=== PATIENT | female | born 1965 | race Caucasian/White ===

== ENCOUNTER → 2016-12-22 | Outpatient (CLI) | payer OTHER | LOC: RAD 12:53 | DX: D25.0 Submucous leiomyoma of uterus (principal); N85.9 Noninflammatory disorder of uterus, unspecified ==

== ENCOUNTER → 2019-05-07 | Outpatient (CLI) | payer OTHER | LOC: MAMMO 12:47 | DX: Z12.31 Encounter for screening mammogram for malignant neoplasm of breast (principal) ==

== ENCOUNTER → 2020-06-29 | Outpatient (CLI) | payer OTHER | LOC: MAMMO 10:48 | DX: Z12.31 Encounter for screening mammogram for malignant neoplasm of breast (principal); Z98.82 Breast implant status ==

== ENCOUNTER → 2022-08-16 | Outpatient (CLI) | payer OTHER | LOC: PT 08:22 | DX: S73.191A Other sprain of right hip, initial encounter (principal); M24.151 Other articular cartilage disorders, right hip; M25.851 Other specified joint disorders, right hip ==

== ENCOUNTER 2022-09-06 08:51 | Outpatient (RCR) | payer OTHER | END 2022-09-18 | disposition still patient (30) | LOC: PT | DX: S73.191D Other sprain of right hip, subsequent encounter (principal); M25.851 Other specified joint disorders, right hip; M24.151 Other articular cartilage disorders, right hip ==